=== PATIENT | female | born 1990 | race African-American/Black ===

== ENCOUNTER 2023-12-27 12:44 | Emergency (ER) | payer MEDICAID ==
[~2023-12-27] VITALS: Ht 165.1 cm; Wt 72.7 kg
[2023-12-27 12:48] VITALS: O2SAT 100
[2023-12-27 12:55] VITALS: BP 109/74; PULSE 94; RESP 18; TEMP 98; O2SAT 100
== END 2023-12-27 14:21 | disposition home or self-care (01) ==
LOC: ER 12:59
DX: Z00.00 Encounter for general adult medical examination without abnormal findings (principal)
CPT/HCPCS: 99281

== ENCOUNTER 2024-01-01 11:58 | Emergency (ER) | payer MEDICAID ==
[2024-01-01 12:46] VITALS: BP 112/79; PULSE 92; RESP 18; TEMP 36.89184; O2SAT 100
== END 2024-01-01 14:00 | disposition home or self-care (01) ==
LOC: ER 12:18
DX: O26.893 Other specified pregnancy related conditions, third trimester (principal); M79.89 Other specified soft tissue disorders; Z3A.37 37 weeks gestation of pregnancy; Z98.890 Other specified postprocedural states
CPT/HCPCS: 71045; 93970; 99284; Z7610

== ENCOUNTER 2024-01-10 01:46 | Emergency (ER) | payer MEDICAID ==
[~2024-01-10] VITALS: Ht 165.1 cm; Wt 76.0 kg
[2024-01-10 01:57] VITALS: TEMP 98.4; O2SAT 100
[2024-01-10 04:06] VITALS: BP 129/81; PULSE 80; RESP 23; O2SAT 97
[2024-01-10 05:13] LABS: CLARITY URINE CLEAR (CLEAR); COLOR URINE YELLOW (YELLOW); GLUCOSE URINE NEGATIVE (NEGATIVE); KETONES URINE NEGATIVE (NEGATIVE); LEUKOCYTE ESTERASE URINE 1+ (NEGATIVE); NITRITE URINE NEGATIVE (NEGATIVE); OCCULT BLOOD URINE NEGATIVE (NEGATIVE); PH URINE 6.5 (4.5-8.0); PROTEIN URINE TRACE (NEGATIVE); SPECIFIC GRAVITY URINE 1.028 (1.005-1.030); UROBILINOGEN URINE 0.2 E.U./dL (0.2-1.0)
[2024-01-10 05:41] LABS: BASOPHILS % 0.4 % (0.0-2.0); DIFFERENTIAL COMMENT 0; EOSINOPHILS % 1.5 % (0.0-5.0); HEMATOCRIT. 33.1 % (36.0-48.0); HEMOGLOBIN. 11.1 g/dL (12.0-16.0); LYMPHOCYTES % 38.6 % (20.0-50.0); MEAN CORPUSCULAR HEMOGLOBIN 30.2 pg (28.0-32.0); MEAN CORPUSCULAR HGB CONC 33.4 g/dL (31.0-37.0); MEAN CORPUSCULAR VOLUME 90.3 fL (81.0-99.0); MEAN PLATELET VOLUME 12.1 fl (7.4-10.4); MONOCYTES % 11.4 % (2.0-8.0); NEUTROPHILS % 48.1 % (40.0-76.0); PLATELET 152 x1000/uL (130-400); RED BLOOD CELL COUNT 3.66 mill/uL (4.2-5.4); WHITE BLOOD COUNT 7.2 x1000/uL (4.5-11.0)
[2024-01-10 06:52] LABS: BACTERIA URINE 1+; RBC URINE 0-2 /hpf (0-2); SQUAMOUS EPITHELIAL CELL URINE 1+ /lpf (RARE/1+)
== END 2024-01-10 04:10 | disposition short-term general hospital (02) ==
LOC: ER 01:46
DX: O26.893 Other specified pregnancy related conditions, third trimester (principal); O36.62X0 Maternal care for excessive fetal growth, second trimester, not applicable or unspecified; Z3A.40 40 weeks gestation of pregnancy
CPT/HCPCS: 81003; 85025; 36415; 76805; 99285; Z7610